=== PATIENT | male | born 1980 | race Caucasian/White ===

== ENCOUNTER 2023-06-27 14:57 | Emergency (ER) | payer SELFPAY ==
[2023-06-27 15:10] VITALS: BP 145/78
--- NOTE | 2023-06-27 16:04 | ED.SKININJ ---
HPI-Injury
General
Chief Complaint: Ear Problem
Source: patient
Exam Limitations: none
Time Seen by Provider: 06/27/23 15:53
Travel History
Have you had any contact with someone who has COVID-19?: No
Do you have any symptoms of coronavirus? Fever > 100 degrees, chills, cough, shortness of breath, sore throat, loss of taste or smell, muscle aches, or headache?: No
History of Present Illness-Injury
Initial Injury comments:
42-year-old male presents stating that he woke up this morning with both ears bleeding. He denies any injury. He notes a slight headache. He also notes hematuria. He felt well yesterday. Denies taking any medication. He was found by the nurse
to be aggressively using Q-tips in his ears. No cough. No other complaints at this time
Past History
Past History
ED Past Medical History: Other (substance abuse)
ED Past Surgical History: None
Social History
Tobacco: Smoker
Drug: IVDA
Personal: Single
Phy Exam
Physical Exam
Physical Exam:
General: Well-developed male no acute respiratory distress
HEENT: Normocephalic atraumatic bilateral tympanic membranes visualized and within normal limits. Bilateral external auditory canals irritated excoriated left external auditory canal with mild amount of fresh blood no active bleeding on the right
side
Heart: Regular rate and rhythm no murmurs
Lungs: Clear to auscultation bilaterally no wheeze
Skin: Warm no rash or lesions
Psychiatric exam: appears anxious, cooperative
Course
Orders/Labs/Results
Orders:
Orders
06/27/23 16:16
Complete Blood Count/With Diff Urgent
Comprehensive Metabolic Panel Urgent
Drug Screen, Urine [Urine Drug Abuse Screen] Urgent
Date Specimen was Collected: 06/27/23
Time Specimen was Collected: 16:11
Fentanyl, Urine Urgent
PTT Urgent
Prothrombin Time Urgent
Urinalysis Reflex To Culture Urgent
Date Specimen was Collected: 06/27/23
Time Specimen was Collected: 16:11
Urine Microscopic Reflex Cult Urgent
06/27/23 17:33
Neomycin/Polymyxin/Hc [Cortisporin Otic Suspension] See Dose Instructions OTIC NOW STA
Abnormal Lab Results
06/27/23
16:16
MCH 31.6 H pg
(27.0-31.0)
Carbon Dioxide 31 H mmol/L
(22-30)
BUN 24 H mg/dl
(9-20)
Glucose 115 H mg/dl
(70-99)
Total Bilirubin 1.5 H mg/dl
(0.2-1.3)
AST 122 H U/L
(17-59)
ALT 170 H U/L
(0-50)
Total Protein 9.0 H g/dl
(6.3-8.2)
Urine Ketones Trace A
(Negative)
Urine Bilirubin 1+ A
(Negative)
Urine Urobilinogen 3+ A
(Neg - 1+)
Leukocyte Esterase Rfl Trace A
(Negative)
Ur Amphetamines Screen Positive H
(Negative)
U Methamphetamines Scrn Positive H
(Negative)
06/27/23 16:16
06/27/23 16:16
Vital Signs
Initial and Last Documented VS:
Initial Vital Signs
Temp Pulse Resp BP Pulse Ox
98.0 F 107 16 145/78 98
06/27/23 15:10 06/27/23 15:10 06/27/23 15:10 06/27/23 15:10 06/27/23 15:10
Last Documented Vital Signs
Temp Pulse Resp BP Pulse Ox
98.0 F 98 16 145/71 97
06/27/23 15:10 06/27/23 17:21 06/27/23 17:21 06/27/23 17:21 06/27/23 17:21
MDM/Problems Addressed
Differential Diagnosis Includes:
Bleeding from the external auditory canals. Could be traumatic in nature from using Q-tips. Patient does have slightly bizarre affect. Check labs/coags. Consider using cortisporin otic drops to ear canals.
*Critical Care Note
Total Time (30-74mins, 75-104mins- exclusive of procedures): Not Applicable
Update Note
Update Note:
Unlike patient tested positive for methamphetamine and the drug screen. I suspect bleeding in ear canals is from trauma from using Q-tips. Started on Cortisporin otic drops. Stable for discharge
ED Attending Note
-
Portions of this chart may have been created with voice recognition software.� Occasional wrong word or��sound alike� substitutions may have occurred due to the inherent limitations of voice recognition software.
Discharge Plan
Departure
Patient Disposition: Home (Routine Discharge)
Date of Disposition: 06/27/23
Time of Disposition: 18:05
Patient with high blood pressure during this ER visit?: No
Discharge Problem:
external auditory canal abrasion
Instructions: Outer Ear Infection (DC)
Prescriptions:
No Action
azithromycin [Zithromax] 250 MG tablet
250 mg PO UD Qty: 0 0RF
albuterol sulfate 1 PUFF HFA aerosol inhaler
1 puff inhalation R QID Qty: 1 0RF
Referrals:
NONE,* [Family Provider] -
Activity Restrictions/Additional Instructions:
Use drops as directed 3 drops both ears 4 times a day. Avoid using Q-tips in the ear. Return if worse
Interventions
Interventions:
*Risk Screen - Suicide Last Done: 06/27/23 15:46
*General Assessment Last Done: 06/27/23 15:46
*Neglect/Abuse Screening Last Done: 06/27/23 15:46
*ED COVID-19 Vaccine History Last Done: 06/27/23 15:10
[2023-06-27 16:33] LABS: % Basophils 0.3 % (0-2); % Eosinophils 0.2 % (0-6); % Immature Granulocytes 0.2 % (0-0.5); % Lymphocytes 21.8 % (20.5-51.1); % Neutrophils 71.5 % (42.2-75.2); Absolute Lymphocytes 1.3 10^3/uL (1.2-3.4); Absolute Monocytes 0.4 10^3/uL (0.1-0.6); Absolute Neutrophils 4.2 10^3/uL (1.4-6.5); Hemoglobin 15.5 g/dL (13.0-18.0); Mean Corpuscular Hgb 31.6 pg (27.0-31.0); Mean Corpuscular Volume 87.6 fL (80.0-94.0); Mean Platelet Volume 9.6 fL (7.4-10.4); Nucleated Red Blood Cells % 0 % (-); Platelet Count 246 10^3/uL (130-400); Red Blood Cell Count 4.91 10^6/uL (4.70-6.10); Red Cell Dist. Width 12.1 % (11.5-14.5); White Blood Cell Count 5.9 10^3/uL (4.8-10.8)
[2023-06-27 16:43] LABS: Urine Albumin Negative (Neg - Trace); Urine Bilirubin 1+ (Negative); Urine Character Clear (Clear); Urine Color Yellow; Urine Glucose Negative (Negative); Urine Ketone Trace (Negative); Urine Leukocyte Trace (Negative); Urine Nitrite Negative (Negative); Urine Occult Blood Negative (Negative); Urine Specific Gravity 1.015 (<1.030); Urine Urobilinogen 3+ (Neg - 1+)
[2023-06-27 16:45] LABS: PT 14.3 Sec (11.4-14.6)
[2023-06-27 16:46] LABS: ALT (SGPT) 170 U/L (0-50); AST (SGOT) 122 U/L (17-59); Albumin 4.4 g/dl (3.5-5.0); Alkaline Phosphatase 74 U/L (38-126); Blood Urea Nitrogen 24 mg/dl (9-20); Carbon Dioxide 31 mmol/L (22-30); Chloride 100 mmol/L (98-107); Glucose 115 mg/dl (70-99); Potassium 4.3 mmol/L (3.5-5.1); Sodium 141 mmol/L (135-145); Total Bilirubin 1.5 mg/dl (0.2-1.3); eGFR > 60.00
[2023-06-27 16:56] LABS: Amphetamines Positive (Negative); Barbiturates Negative (Negative); Benzodiazepines Negative (Negative); Buprenorphine Negative (Negative); Cocaine Negative (Negative); Marijuana Negative (Negative); Methadone Negative (Negative); Methamphetamines Positive (Negative); Opiates Negative (Negative); Phencyclidine Negative (Negative); Tricyclic Antidepressants Negative (Negative)
[2023-06-27 16:58] LABS: Urine Amorphous Seen; Urine Squamous Cell 0-2 /LPF (Few)
[2023-06-27 16:59] LABS: Urine Red Blood Cell None Seen /HPF (0-2); Urine White Cell 0-2 /HPF (0-5)
[2023-06-27 17:13] LABS: Fentanyl, Urine Negative (Negative)
[2023-06-27 17:21] VITALS: BP 145/71
[2023-06-27] MEDS: CORTISPORIN OTIC SUSPENSION 1 DROP OTIC (17:45)
== END 2023-06-27 18:20 | disposition home or self-care (01) ==
LOC: EMR 14:57
PROVIDERS: Physician Assistant; EMERGENCY PHYSICIAN Emergency Medicine
DX: S00.412A Abrasion of left ear, initial encounter (principal); X58.XXXA Exposure to other specified factors, initial encounter; R31.9 Hematuria, unspecified; F17.200 Nicotine dependence, unspecified, uncomplicated
CPT/HCPCS: 99283; 80053; 80306; 80307; 81003; 81015; 85025; 85610; 85730

== ENCOUNTER 2024-03-07 06:55 | Emergency (ER) | payer SELFPAY ==
[2024-03-07 06:58] VITALS: BP 143/104
[2024-03-07] MEDS: MAALOX 40 PO (07:42)
--- NOTE | 2024-03-07 07:44 | ED.GENMED ---
History of Present Illness
General
Chief Complaint: Throat Problem
Source: patient
Exam Limitations: none
Time Seen by Provider: 03/07/24 07:06
Nursing documentation reviewed up to this point in time: agreed with
History of Present Illness
History of Present Illness:
43 y/o M with h/o bipolar disorder
alcohol use
vape
here with throat pain/burning discomfort epigastric region after drinking alcohol tonight
pt says he drank 3 shots 'buttered nipple' made by a friend's friend at his house. the 4th shot immediately tasted weird, he got a burning in his throat and mouth. this was about 2hours ago
he since has been very anxious that he was given something caustic
he did cough up a little sputum that looked blood tinged earlier but has not had any vomiting, resp distresss, fever, severe pain
he is very anxious, pacing the room
Past History
Past History
ED Past Medical History: Other (substance abuse)
ED Past Surgical History: None
Social History
Tobacco: Smoker
Drug: IVDA
Personal: Single
Phy Exam
Physical Exam
Physical Exam:
GENERAL: Alert , pacing, anxious
EYE: pupils equal and reactive
NECK: Supple
ENT: o/p clr, DRY IRRITATED, RED; NO EXUDATE; NORMAL PHONATION, NORMAL SWALLOWING.
CARDIAC: Regular rate and rhythm .
LUNGS: Clear breath sounds bilaterally, no acute respiratory distress, no wheezes/rales/rhonchi
ABDOMEN: Soft, without focal tenderness, no r/g, no cvat, normal bowel sounds
NEUROLOGICAL: Alert and oriented, no focal neuro deficits
SKIN: Warm and dry, skin intact.
MUSCULOSKELETAL: No edema, well perfused. neg rachael's sign
PSYCH: ANXIOUS, NO SI/HI/HALLUCINATIONS; pressured speech
Course
Orders/Labs/Results
Orders:
Orders
03/07/24 07:39
Mag Hydrox/Al Hydrox/Simeth [Maalox] 30 ml Phenobarb/Hyoscy/Atropine/Scop [] 10 ml PO NOW
CR Chest - 2 Views Urgent
Comment:
Reason For Exam: possible ingestion
03/07/24 07:41
Mag Hydrox/Al Hydrox/Simeth [Maalox] 30 ml .ROUTE .STK-MED ONE
Phenobarb/Hyoscy/Atropine/Scop [] 10 ml .ROUTE .STK-MED ONE
03/07/24 07:49
Fentanyl, Urine Urgent
Urine Drug Abuse Screen Urgent
Date Specimen was Collected: 03/07/24
Time Specimen was Collected: 07:45
Abnormal Lab Results
03/07/24
07:49
Ur Amphetamines Screen Positive H
(Negative)
U Methamphetamines Scrn Positive H
(Negative)
Vital Signs
Initial and Last Documented VS:
Initial Vital Signs
Temp Pulse Resp BP Pulse Ox
97.9 F 70 20 143/104 97
03/07/24 06:58 03/07/24 06:58 03/07/24 06:58 03/07/24 06:58 03/07/24 06:58
Last Documented Vital Signs
Temp Pulse Resp BP Pulse Ox
97.9 F 94 16 139/91 98
03/07/24 06:58 03/07/24 08:00 03/07/24 08:00 03/07/24 08:00 03/07/24 08:00
MDM/Problems Addressed
Differential Diagnosis Includes:
caustic ingestion, drug abuse, alcoholic gastritis, GERD
MDM/Problems Addressed:
43 y/o M
bipolar disorder
smoker
alcohol use
here with burning throat and epigastric region after drinking alcohol this morning
he drank 3 buttered nipple shots which were sweet tasing and the last one burned his throat
he wasn't sure if it was something else
he doesn't know the person who mixed the drinks but it was friend of a friend and he didn't see anything unusual
pt has not had trouble breathing, vomitnig
he did 'spit up' a little mucus and thoguht it was dark but that was only once
pt iniiitially denied use of methamphetamine but seemed to be experiencing some of the anxiety/pacing associated with stimulant use
urine pos for meth which could if inhaled cause some irritation
regardless, he does have dry mouth and some subjective burning symptoms
but no signs of significant caustic ingestion exposure: resp distress, vomiting eprsistently, abnormal vitals etc
d/w ed attending
given maalox with improvement of symtoms
already had 2 hours post ingestino obs prior to arrival an dobs here without any worse symptoms
cxr indep reviewed, clear
d/c home
*Critical Care Note
Total Time (30-74mins, 75-104mins- exclusive of procedures): Not Applicable
ED Attending Note
-
Portions of this chart may have been created with voice recognition software.� Occasional wrong word or��sound alike� substitutions may have occurred due to the inherent limitations of voice recognition software.
Discharge Plan
Departure
Patient Disposition: Home (Routine Discharge)
Date of Disposition: 03/07/24
Time of Disposition: 08:51
Patient with high blood pressure during this ER visit?: No
Condition: Fair
Covid-19: Not Applicable
Discharge Problem:
possible ingestion, Esophagitis
Instructions: Nontoxic Ingestion
Prescriptions:
No Action
azithromycin [Zithromax] 250 MG tablet
250 mg PO UD Qty: 0 0RF
albuterol sulfate 1 PUFF HFA aerosol inhaler
1 puff inhalation R QID Qty: 1 0RF
Activity Restrictions/Additional Instructions:
WE ARE NOT SURE WHAT YOU INGESTED - BUT YOU COULD HAVE SOME IRRITATION OF YOUR ESOPHAGUS
YOU SHOULD TRY MAALOX 3 TIME S A DAY FOR 3-5 DAYS NEEDED
DRINK COOL LIQUIDS, EAT SOFT FOODS
RETURN FOR: SEVERE WORSENING OF SYMPTOMS, VOMITING BLOOD, BLACK STOOL, TROUBLE BREATHING OR ANY CONCERNS.
OTHERWISE SEE A GI DOCTOR
YOU DID TEST POSITIVE FOR METHAMEPHETAMINES WHICH CAN CAUSE IRRITATION WELL ALCOHOL.
Interventions
Interventions:
*Risk Screen - Suicide Last Done: 03/07/24 08:00
*General Assessment Last Done: 03/07/24 08:00
*Neglect/Abuse Screening Last Done: 03/07/24 08:00
ED- Fall Risk Assessment Last Done: 03/07/24 08:00
ED-EENT Assessment Last Done: 03/07/24 08:00
ED- Pulmonary Assessment Last Done: 03/07/24 08:00
Discharge Date and Time
Print Language: NEPALI
[2024-03-07 08:00] VITALS: BP 139/91
[2024-03-07 08:21] LABS: Amphetamines Positive (Negative)
[2024-03-07 08:22] LABS: Barbiturates Negative (Negative); Benzodiazepines Negative (Negative); Buprenorphine Negative (Negative); Cocaine Negative (Negative); Marijuana Negative (Negative); Methadone Negative (Negative); Methamphetamines Positive (Negative); Opiates Negative (Negative); Phencyclidine Negative (Negative); Tricyclic Antidepressants Negative (Negative)
[2024-03-07 08:44] LABS: Fentanyl, Urine Negative (Negative)
== END 2024-03-07 08:51 | disposition home or self-care (01) ==
LOC: EMR 06:55
PROVIDERS: Physician Assistant; EMERGENCY PHYSICIAN Emergency Medicine
DX: K20.90 Esophagitis, unspecified without bleeding (principal); F10.90 Alcohol use, unspecified, uncomplicated; F31.9 Bipolar disorder, unspecified; F15.10 Other stimulant abuse, uncomplicated; F43.10 Post-traumatic stress disorder, unspecified; F41.9 Anxiety disorder, unspecified; I10 Essential (primary) hypertension; F17.290 Nicotine dependence, other tobacco product, uncomplicated; Z88.0 Allergy status to penicillin; Z91.040 Latex allergy status
CPT/HCPCS: 99283; 71046; 80306; 80307